=== PATIENT | female | born 1970 | race Caucasian/White ===

== ENCOUNTER → 2019-12-19 17:19 | Outpatient (CLI) | payer OTHER, SELFPAY ==
--- NOTE | ~2019-12-19 | MM_ITS ---
EXAMINATION: MM screening [facility] BI [facility] HISTORY: Screening mammogram TECHNIQUE: Craniocaudal and mediolateral oblique 3-D tomosynthesis images were obtained and synthetic 2-D images were generated. CAD analysis was submitted and interpreted. COMPARISON: 12/30/2017, 09/05/2016, 06/27/2015 BREAST PARENCHYMAL COMPOSITION: The breasts are heterogeneously dense, which may obscure small masses . FINDINGS: RIGHT BREAST: There is no evidence of suspicious mass, calcification, or architectural distortion to suggest malignancy. There has been no significant interval change. LEFT BREAST: There are grouped indeterminate calcifications in the posterior third of the outer breas t best appreciated 6 cm from the nipple. IMPRESSION: 1. Indeterminate left breast calcifications. 2. Magnification views are recommended. BI-RADS Category 0: Incomplete: Needs additional imaging evaluation. Reviewed, dictated and finalized at location A.
== END ==
PROVIDERS: Visit Provider Obstetrics & Gynecology
DX: Z12.31 Encounter for screening mammogram for malignant neoplasm of breast (principal); R92.8 Other abnormal and inconclusive findings on diagnostic imaging of breast
CPT/HCPCS: 77063; 77067

== ENCOUNTER → 2019-12-26 07:08 | Outpatient (CLI) | payer OTHER, SELFPAY ==
--- NOTE | ~2019-12-26 | XR_ITS ---
XR chest 2V DATE: 12/26/2019 07:30 INDICATION: Cough for 3 weeks TECHNIQUE: PA and lateral views COMPARISON: 02/11/2018 two-view chest FINDINGS: Normal heart size. No hilar or mediastinal enlargement. No pulmonary infiltrate or consolid ation, pleural effusion or pulmonary vascular congestion or pneumothorax. Included skeletal structures are unremarkable. IMPRESSION: No active cardiopulmonary disease Reviewed, dictated and finalized at location A.
== END ==
PROVIDERS: PCP Family Medicine; Visit Provider Nurse Practitioner Family
DX: R05 Cough (principal)
CPT/HCPCS: 71046

== ENCOUNTER → 2020-04-17 07:43 | Outpatient (CLI) | payer OTHER, SELFPAY ==
--- NOTE | ~2020-04-17 | MM_ITS ---
EXAMINATION: MM diagnostic mammo unilat LT HISTORY: Indeterminate left breast calcifications on screening mammogram TECHNIQUE: Additional images of the left breast were performed. CAD analysis was submitted and interp reted. COMPARISON: 12/29/2019, 12/30/2017, 09/05/2016 BREAST PARENCHYMAL COMPOSITION: The breasts are heterogeneously dense, which may obscure small masses . FINDINGS: There are grouped, punctate calcifications in the posterior third of the outer breast appro ximately 7 cm from the nipple which appear to be round in morphology. With magnification and conventi onal two soham mammography, these appear to be stable when compared to prior examinations although subt le against the background heterogeneously dense breast tissue. No suspicious mass or architectural di stortion is identified. IMPRESSION: 1. Probably benign left breast calcifications. 2. Recommend 6 month follow-up left diagnostic mammogram. BI-RADS category 3, probably benign findings. Reviewed, dictated and finalized at location A.
== END ==
PROVIDERS: PCP Family Medicine; Visit Provider Obstetrics & Gynecology
DX: R92.1 Mammographic calcification found on diagnostic imaging of breast (principal)
CPT/HCPCS: 77065

== ENCOUNTER 2020-07-24 08:55 | Outpatient (CLI) | payer OTHER, SELFPAY ==
--- NOTE | ~2020-07-24 | XR_ITS ---
EXAMINATION: XR chest 2V DATE: 07/24/2020 09:21 INDICATION: Acute upper respiratory infection, unspecified. TECHNIQUE: Frontal and lateral views of the chest were obtained. COMPARISON: Chest 2 views 12/26/2019 FINDINGS: The chest demonstrates clear lungs without pneumonia, pleural effusion, or pneumothorax. Th e heart size is normal. IMPRESSION: 1. No acute cardiopulmonary disease. Reviewed, dictated and finalized at location A.
[2020-07-24 09:26] LABS: Anion Gap 9 mmol/L (8-16); Blood Urea Nitrogen 13 mg/dL (7-17); Calcium 9.6 mg/dL (8.4-10.2); Carbon Dioxide 32 mmol/L (22-30); Chloride 99 mmol/L (98-107); Cholesterol 264 mg/dL (0-200); Estimated Glomerular Filt Rate > 60; Glucose 106 mg/dL (65-105); HDL Direct 32 mg/dL; Potassium 3.9 mmol/L (3.4-5.0); Sodium 140 mmol/L (137-145); Triglycerides 327 mg/dL (<150)
[2020-07-24 09:37] LABS: LDL Cholesterol Direct 181 mg/dL
== END 2020-07-24 08:56 | disposition home or self-care (01) ==
PROVIDERS: PCP Family Medicine; Referring Provider Nurse Practitioner Family; Visit Provider Family Medicine
DX: E78.2 Mixed hyperlipidemia (principal); I10 Essential (primary) hypertension; J06.9 Acute upper respiratory infection, unspecified; R05 Cough
CPT/HCPCS: 36415; 71046; 80048; 80061

== ENCOUNTER 2020-10-03 07:23 | Outpatient (CLI) | payer OTHER, SELFPAY ==
--- NOTE | ~2020-10-03 | MR_ITS ---
EXAMINATION: MR cervical spine wo con EXAM DATE: 10/03/2020 09:04 INDICATION: Neck pain. Arm pain. TECHNIQUE: Multi-sequential, multiplanar MR images of the cervical spine were obtained without contra st. Axial T2, axial T2 MERGE sequence. Sagittal T1, T2, T2 fat saturation images also obtained. Com parison is made to prior examination from 11/05/2018. FINDINGS: Straightening of cervical lordosis, could be positional. There is mild to moderate loss of the C5-6 disc height. The vertebral body and disc heights are otherwise well maintained. The vertebra l bodies are aligned in the AP dimension. The spinal cord signal intensity and intrinsic morphology i s normal. Cervicomedullary junction is normal in appearance. There are no suspicious marrow signal ab normalities. Paraspinal soft tissue is unremarkable. Level by level evaluation: C2-C3: Disc does not extend beyond the endplate margin. Uncovertebral joint arthropathy: None. Facet joint arthropathy: Minimal bilateral. Neural foraminal stenosis: No stenosis. Central canal stenosis: No stenosis. C3-C4: Disc does not extend beyond the endplate margin. Uncovertebral joint arthropathy: Mild right. Facet joint arthropathy: Minimal bilateral. Neural foraminal stenosis: Mild right. Central canal stenosis: No stenosis. C4-C5: There is a minimal diffuse disc bulge, asymmetric to the right Uncovertebral joint arthropathy: Mild to moderate right, mild left. Facet joint arthropathy: Mild bilateral. Neural foraminal stenosis: Mild right. Central canal stenosis: No stenosis. C5-6: There is a mild diffuse disc bulge, asymmetric to the right bulging into the neural foramina. Uncovertebral joint arthropathy: Moderate right, mild to moderate left. Facet joint arthropathy: Mild to moderate bilateral. Neural foraminal stenosis: Moderate to severe right, mild to moderate left. Central canal stenosis: Mild. C6-7: Disc does not extend beyond the endplate margin. Uncovertebral joint arthropathy: Mild. Facet joint arthropathy: Mild bilateral. Neural foraminal stenosis: No stenosis. Central canal stenosis: No stenosis. C7-T1: Disc does not extend beyond the endplate margin. Uncovertebral joint arthropathy: None. Facet joint arthropathy: Mild bilateral. Neural foraminal stenosis: No stenosis. Central canal stenosis: No stenosis. Compared to 2019, difficult appreciate any significant interval change. IMPRESSION: 1. C5-6 moderate to severe right neural foraminal stenosis. 2. Otherwise relatively mild spondylosis. Reviewed, dictated and finalized at location B. 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
== END 2020-10-03 07:24 | disposition home or self-care (01) ==
LOC: ANHIMG 07:27
PROVIDERS: PCP Family Medicine; Visit Provider Family Medicine
DX: M50.30 Other cervical disc degeneration, unspecified cervical region (principal); M47.892 Other spondylosis, cervical region
CPT/HCPCS: 72141

== ENCOUNTER 2021-03-06 14:30 | Outpatient (CLI) | payer OTHER, SELFPAY ==
--- NOTE | ~2021-03-06 | XR_ITS ---
XR chest 2V 03/06/2021 14:53 Indication: Acute bronchitis Procedure: 2 view chest Comparison: 07/24/2020 Findings: Heart size normal. No focal air space disease, pulmonary edema, pleural effusion or suspect ed pneumothorax. Impression: 1: No acute cardiopulmonary disease. Reviewed, dictated and finalized at location A. Impression: 1: No acute cardiopulmonary disease.
== END 2021-03-06 14:31 | disposition home or self-care (01) ==
LOC: ANHIMG 14:39
PROVIDERS: PCP Family Medicine; Visit Provider Physician Assistant Medical
DX: J20.9 Acute bronchitis, unspecified (principal)
CPT/HCPCS: 71046

== ENCOUNTER → 2022-05-13 16:08 | Outpatient (CLI) | payer BC, SELFPAY ==
--- NOTE | ~2022-05-13 | MM_ITS ---
EXAMINATION: MM screening [facility] HISTORY: Screening TECHNIQUE: Craniocaudal and mediolateral oblique 3-D tomosynthesis images were obtained and synthetic 2-D images were generated. CAD analysis was submitted and interpreted. COMPARISON: Comparison to multiple prior studies sequentially, with oldest reviewed study dated 03/2014. BREAST PARENCHYMAL COMPOSITION: The breasts are heterogenously dense, which may obscure small masses FINDINGS: There is a new cluster of punctate nonspecific calcifications in the upper outer quadrant o f the left breast posteriorly. The right breast is stable without evidence for malignancy. IMPRESSION: 1. Clustered indeterminate left breast calcifications. 2. Magnification views are recommended. BI-RADS Category 0: Incomplete: Needs additional imaging evaluation. Reviewed, dictated and finalized at location A.
== END ==
PROVIDERS: PCP Family Medicine; Visit Provider Nurse Practitioner Obstetrics & Gynecology
DX: Z12.31 Encounter for screening mammogram for malignant neoplasm of breast (principal); R92.8 Other abnormal and inconclusive findings on diagnostic imaging of breast
CPT/HCPCS: 77063; 77067

== ENCOUNTER → 2022-06-03 08:01 | Outpatient (CLI) | payer BC, SELFPAY ==
--- NOTE | ~2022-06-03 | MM_ITS ---
EXAMINATION: MM diagnostic mammo unilat LT HISTORY: Follow-up left breast calcifications TECHNIQUE: Additional 3-D tomosynthesis images of the left breast were performed and synthetic 2-D im ages were generated. CAD analysis was submitted and interpreted. COMPARISON: 05/13/2022 BREAST PARENCHYMAL COMPOSITION: The breasts are heterogeneously dense, which may obscure small masses FINDINGS: There is a cluster of indeterminate calcifications in the upper outer quadrant of the left breast posteriorly. There are no suspicious masses or architectural distortion. IMPRESSION: 1. Clustered indeterminate left breast calcifications, upper outer quadrant. 2. Stereotactic left breast biopsy recommended. BI-RADS category 4, suspicious findings. Reviewed, dictated and finalized at location A.
== END ==
PROVIDERS: PCP Family Medicine; Visit Provider Nurse Practitioner Obstetrics & Gynecology
DX: R92.8 Other abnormal and inconclusive findings on diagnostic imaging of breast (principal)
CPT/HCPCS: 77065

== ENCOUNTER 2022-06-11 10:34 | Outpatient (CLI) | payer BC, SELFPAY ==
--- NOTE | ~2022-06-11 | MR_ITS ---
EXAMINATION: MR shoulder LT wo con DATE: 06/11/2022 11:31 INDICATION: Left shoulder pain and decreased range of motion with inability to raise the left arm. TECHNIQUE: Magnetic resonance imaging (MRI) of the left shoulder was performed without intravenous co ntrast. Sequences included axial PD-weighted FS FSE, coronal oblique PD-weighted FS FSE, coronal obli que T2-weighted FS FSE, sagittal PD-weighted FS FSE, and sagittal T1-weighted SE. COMPARISON: None. FINDINGS: Coracoacromial arch: The acromion undersurface is curved in morphology (type II). The coracoacromial ligament is normal. M oderate osteoarthritis at the left acromioclavicular joint. Rotator cuff: Mild supraspinatus and infraspinatus tendinopathy. Small mild partial-thickness intrasubstance tear e xtending 7 mm AP on the superior facet footplate of the conjoined portion of the supraspinatus and in fraspinatus tendons which involves no greater than one third of the tendon thickness. The bursal and articular sides of the tendon remain intact. The teres minor and subscapularis tendons are normal. No rmal rotator cuff muscle bulk and signal. Biceps tendon, glenoid labrum and glenohumeral cartilage: Long head of the biceps tendon is normal. Linear fluid signal intensity superior, anterior to posteri or tear of glenoid labrum (SLAP tear) at the 11:00-12:00 position. Glenohumeral cartilage is normal. Fluid: Physiologic amount of fluid in the glenohumeral joint and biceps tendon sheath. No loose osteochondr al bodies. Small amount of fluid in the subacromial/subdeltoid bursa consistent with mild bursitis. Bones/other: Normal marrow signal with no fracture or abnormal marrow replacing process. Mild cystic changes along the greater tuberosity. Thickened intermediate signal soft tissue replacing the normal T1 hyperinten se fat signal at the rotator cuff interval which could be seen scarring partial tear scarring at the biceps sharon sling or adhesive capsulitis, latter which is a clinical diagnosis. IMPRESSION: 1. Mild supraspinatus and infraspinatus tendinopathy with small mild intrasubstance tear at the inser tion of the conjoined portion of the tendons. 2. Small SLAP tear at the 10:00 to 11:00 position of the posterior superior glenoid labrum. 3. Thickened soft tissue at the rotator cuff interval which could represent either scarring related t o chronic partial tear of the biceps sharon sling or adhesive capsulitis, the latter which is a clini maria antonia diagnosis. 4. Moderate acromioclavicular osteoarthritis. Reviewed, dictated and finalized at location A. IMPRESSION: 1. Mild supraspinatus and infraspinatus tendinopathy with small mild intrasubst ance tear at the insertion of the conjoined portion of the tendons. 2. Small SLAP tear at the 10:00 to 11:00 position of the posterior superior gle noid labrum. 3. Thickened soft tissue at the rotator cuff interval which could represent eit her scarring related to chronic partial tear of the biceps sharon sling or adhe sive capsulitis, the latter which is a clinical diagnosis. 4. Moderate acromioclavicular osteoarthritis.
== END 2022-06-11 10:35 | disposition home or self-care (01) ==
PROVIDERS: PCP Family Medicine; Visit Provider Family Medicine
DX: M19.012 Primary osteoarthritis, left shoulder (principal); S43.432A Superior glenoid labrum lesion of left shoulder, initial encounter; X58.XXXA Exposure to other specified factors, initial encounter
CPT/HCPCS: 73221

== ENCOUNTER → 2022-12-09 13:32 | Outpatient (CLI) | payer BC, SELFPAY ==
--- NOTE | ~2022-12-09 | XR_ITS ---
Clinical Indication: Chronic bronchitis PA and lateral views of the chest: Comparison: 03/06/2021 Findings: The lungs are clear, without evidence of focal consolidation or pleural effusion. Cardiome diastinal silhouette is within normal limits. Bones and soft tissues are unremarkable. Impression: Normal chest. Reviewed, dictated and finalized at [facility]. 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
== END ==
PROVIDERS: PCP Family Medicine; Visit Provider Physician Assistant Medical
DX: J42 Unspecified chronic bronchitis (principal)
CPT/HCPCS: 71046

== ENCOUNTER 2023-03-02 12:31 | Emergency (ER) | payer BC, SELFPAY ==
--- NOTE | ~2023-03-02 | CT_ITS ---
EXAMINATION: CT abdomen pelvis w con DATE: 03/02/2023 18:30 INDICATION: epigastric, generalized TECHNIQUE: Computed tomography (CT) of the abdomen and pelvis was performed with 100 mL Omnipaque-350 intravenous contrast. Automated exposure control and iterative reconstruction technique were employe d. The dose-length product was 464.39 mGy-cm. COMPARISON: 03/19/2006. FINDINGS: Lower thorax: Small hiatal hernia. 6 mm lymph node at the esophageal hiatus. Mild coronary artery maria antonia cification. Mild dependent atelectasis. Liver: Normal. Biliary/Gallbladder: Gallbladder is normal. No bile duct dilation. Pancreas: No mass or duct dilation. Spleen: Granulomatous calcifications. Adrenals: 1.8 cm indeterminate density right adrenal lesion, not well seen in the prior study. Kidneys: Tiny subcentimeter left renal hypodensity, too small to characterize but most likely represe nts a cyst. No suspicious mass, stone, or hydronephrosis. GI tract: Mild distal esophageal and gastric wall edema. 4.8 cm uncomplicated appearing gastric diver ticulum No small or large bowel dilation. Normal appendix. Diverticulosis without diverticulitis. Mesentery/Peritoneum: No ascites, mass, or free air. Retroperitoneum: No mass. Pelvis: Urinary bladder is decompressed. IUD, in good position. Soft Tissues: Soft tissues and body wall unremarkable. Bones: No acute osseous finding. IMPRESSION: 1. Mild esophagitis/gastritis. 2. 4.8 cm gastric diverticulum without ulceration or inflammatory change, normally an asymptomatic fi nding that occasionally may present with epigastric discomfort. 3. 1.8 cm indeterminate right adrenal mass, if there is no history of cancer this is probably a benig n finding, consider 12 month follow-up adrenal CT. Reviewed, dictated and finalized at location K. IMPRESSION: 1. Mild esophagitis/gastritis. 2. 4.8 cm gastric diverticulum without ulceration or inflammatory change, teri lly an asymptomatic finding that occasionally may present with epigastric disco mfort. 3. 1.8 cm indeterminate right adrenal mass, if there is no history of cancer th is is probably a benign finding, consider 12 month follow-up adrenal CT.
[2023-03-02 12:33] VITALS: BP 119/80; PULSE 101; RESP 18; TEMP 37.3; O2SAT 100
[2023-03-02 13:39] LABS: Basophils Absolute Auto 0.1 K/mm3 (0.0-0.1); Basophils Percent Auto 0.9 % (0.2-1.2); Eosinophils Percent Auto 0.5 % (0-4.4); Hematocrit 41.6 % (37.0-47.0); Hemoglobin 13.5 g/dL (12.0-15.0); Immature Granulocyte Absolute 0.02 K/mm3 (0.00-0.031); Immature Granulocyte Percent A 0.4 % (0-0.5); Lymphocytes Absolute Auto 2.37 K/mm3 (0.9-3.2); Lymphocytes Percent Auto 43.1 % (18.3-44.2); Mean Corpuscular HGB Conc 32.5 g/dl (32-36); Mean Corpuscular Hemoglobin 28.2 pg (26-34); Mean Platelet Volume 10.7 fl (7.4-10.4); Monocytes Absolute Auto 0.4 K/mm3 (0.1-0.6); Monocytes Percent Auto 7.6 % (2.6-8.5); Neutrophils Absolute Auto 2.6 K/mm3 (1.3-6.7); Neutrophils Percent Auto 47.5 % (45.5-73.1); Platelet Count Result 220 k/mm3 (150-375); Red Blood Count 4.78 M/mm3 (4.2-5.4); Red Cell Distribution Width 14.7 % (11.5-14.5); White Blood Count 5.5 K/mm3 (4.5-10.0)
[2023-03-02 13:49] LABS: Atypical Lymphocytes Present; Platelet Estimate Adequate (Adequate); Schistocytes None Seen (NORMAL)
[2023-03-02 13:52] LABS: Appearance Urine Cloudy (Clear); Bacteria Urine 2+ /hpf; Bilirubin Urine Negative (Negative); Blood Urine Trace (Negative); Color Urine Yellow (Yellow); Glucose Urine UA Negative (Negative); Ketones Urine Negative (Negative); Leukocyte Esterase Ur 3+ LEU/UL (Negative); Need Manual Microscopic Reviewed; Nitrate Urine Negative (Negative); Non Pathogenic Casts 0-2; Protein Urine Negative (Negative); RBC Urine 0-2 /hpf (0-2); Squamous Epithelial Cell Urine Many /hpf (Few); Urobilinogen Urine 0.2 mg/dL (<2.0)
[2023-03-02 13:54] LABS: Add Urine Microscopic? YES
[2023-03-02 14:13] LABS: Alanine Aminotransferase 109 U/L (6-35); Albumin Level 4.9 g/dL (3.5-5.1); Alkaline Phosphatase 155 U/L (38-126); Anion Gap 9 mmol/L (8-16); Aspartate Amino Transferase 81 U/L (14-36); Blood Urea Nitrogen 15 mg/dL (7-17); Carbon Dioxide 28 mmol/L (22-30); Chloride 99 mmol/L (98-107); Estimated CRCL calculation 69 ml/min; Estimated Glomerular Filt Rate > 60; Glucose 88 mg/dL (65-110); Lipase 80 U/L (23-300); Potassium 4.1 mmol/L (3.4-5.0); Sodium 136 mmol/L (137-145)
[2023-03-02 15:49] VITALS: BP 116/65; PULSE 103; RESP 18; O2SAT 99
[2023-03-02] MEDS: SODIUM CHLORIDE 0.9% IV 1,000 ML 999 ML IV CONT (18:33)
[2023-03-02] MEDS: MORPHINE SULFATE (*CRX) 4 MG/ML INJ IV PUSH (18:34)
--- NOTE | 2023-03-02 18:52 | ED.ABDPAIN ---
HPI - Abdominal Pain General Chief Complaint: Abdominal Pain Stated Complaint: abd pain, N/V since January Time Seen by Provider: 03/02/23 17:53 Source: patient Mode of arrival: ambulatory Limitations: no limitations History of Present Illness HPI narrative: This is a 52-year-old female with PMH of gastritis who presents to the ED with chief complaint of generalized abdominal pain. States that she was seen in ER February 04 and was told she had a an infection. She was prescribed antibiotics by her primary care and finished those. She states her symptoms seem to improve after that but in the last couple days she is having more pain. She has not had any more episodes of vomiting. Denies nausea. She has Zofran prescription at home. She has prescriptions for omeprazole and Mylanta at home as well which seem to help. She states that her pain is no different but she is just tired of dealing with it. Denies fevers, chills, chest pain, shortness of breath, problems with BMs, and urinary symptoms. Related Data Home Medications Medication Instructions Recorded Confirmed meloxicam 15 mg tablet 15 mg PO DAILY 08/18/22 02/13/23 metoclopramide HCl 10 mg tablet 10 mg PO DAILY 02/13/23 02/13/23 Allergies Allergy/AdvReac Type Severity Reaction Status Date / Time moxifloxacin [From Avelox] Allergy Intermediate Rash Verified 03/02/23 17:56 Review of Systems Review of Systems: CONSTITUTIONAL: Denies fever, chills, or sweats. EYES: Denies visual changes, redness, or discharge. ENT: Denies rhinorrhea, congestion, sore throat, or otalgia. CARDIOVASCULAR: Denies chest pain, palpitations, or edema. RESPIRATORY: Denies cough or dyspnea. GASTROINTESTINAL: See HPI GENITOURINARY: Denies dysuria or hematuria. SKIN: Denies rash or itching. MUSCULOSKELETAL: Denies back pain, joint pain, or myalgia. NEUROLOGIC: Denies headache, numbness, dizziness, or weakness. PSYCHIATRIC: Denies anxiety or depression. [facility] Past Medical History Medical History (Updated 03/02/23 @ 18:54 by Michael Sidhu PA-C) Abnormal weight gain BMI 29.0-29.9,adult BMI 30.0-30.9,adult BMI 31.0-31.9,adult COVID Degenerative, intervertebral disc, cervical Hormone imbalance Mesenteric adenitis Otalgia of both ears Right shoulder injury Family History Family History Mother Hypertension Family history of diabetes mellitus in first degree relative Father Diverticula of colon Social History Social History Smoking status: Former smoker Tobacco type: cigarettes Second hand tobacco smoke exposure: No Alcohol intake: current Drinks per week: 2 Substance use: current Substance use type: marijuana Other substance usage details: 2x month Living arrangements: with family Additional living arrangements comments: Occupation/Education: unemployed Gender identity (if verbalized by the patient): Female Sexual Orientation (if Verbalized by the Patient): Straight or Heterosexual Spiritual care concerns: No Agree to blood products: Yes Exam Narrative: GENERAL: Well-appearing, well-nourished, and in no acute distress. Resting comfortably. HEAD: Normocephalic, atraumatic. EYES: PERRLA and EOMI. ENT: Nares clear, no rhinorrhea or epistaxis. Mucous membranes moist. Oropharynx without tonsillar hypertrophy exudate or other lesions. NECK: Supple. No adenopathy or masses. CHEST: No respiratory distress. Clear to auscultation. No wheezes rales or rhonchi HEART: Regular rate and rhythm. No murmur heard. Normal peripheral pulses. ABDOMEN: Mild epigastric tenderness. Soft, otherwise nontender, nondistended, normal active bowel sounds. MSK: Normal range of motion. No edema. SKIN: Warm, dry, no rash. NEURO: Alert and oriented x3. No focal deficits. PSYCH: Normal mood and affect. Course Course Emergency [facility]
[2023-03-02 19:07] VITALS: BP 98/85; PULSE 87; RESP 18; O2SAT 98
[2023-03-02 19:16] VITALS: BP 110/70; PULSE 86; RESP 18; O2SAT 98
== END 2023-03-02 19:40 | disposition home or self-care (01) ==
PROVIDERS: Emergency Medicine; Emergency Provider Physician Assistant; PCP Family Medicine
DX: K29.70 Gastritis, unspecified, without bleeding (principal)
CPT/HCPCS: 36415; 74177; 80053; 81001; 81025; 83690; 85025; 87086; 87088; 96365; 96375; 99284; J0696; J2270; J7030; Q9967

== ENCOUNTER 2023-03-12 02:21 | Day surgery (SDC) | payer BC, SELFPAY ==
[2023-03-04 11:58] VITALS: BMI 30.2
--- NOTE | 2023-03-11 20:16 | PM.HPGS ---
History of Present Illness History of Present Illness Consent: Risks, benefits, and alternatives have been discussed and questions answered. Patient agrees to proceed with procedure. Chief complaint: change in bowel habits, N&V Narrative: Malu Lane is a 52 year old female has not felt well since January.? She recalls that on January 20 she went to [facility] with her daughter an 11 month old.? They fed the stingrays and the [id number] put some of the stingray food into his mouth.? Within a day or to he was severely sick with ?stomach virus? he was hospitalized.? His mother also then came down with severe diarrhea.? The patient was still okay but on February 04 she woke up feeling sick to her stomach, ill and weak.? She vomited all day every hour to an was bringing up dark, coffee-ground black material initially.? The next day she was not vomiting but was having pain and cramping her abdomen this pain in fact has been constant ever since then.? On the 06 of February, the 3rd day of her illness she went to work but by 3:00 p.m. could take it no more went to an emergency room in [place].? There she had laboratory studies that was [place] for [place] [id number].? A CT scan of the abdomen was done and has been scanned to the chart.? What was noted was that compared to previous scan she had lymphadenopathy that was ?unchanged in size and number? it was described as enlarged jejunal chain of lymph nodes.? They also had noted diffuse gastric distention with a large air-fluid level.? She was sent home on metoclopramide to take as needed Review of Systems Review of Systems: All systems reviewed & are unremarkable except as noted in HPI and below PMFSH Past Medical History Medical History Abnormal weight gain BMI 29.0-29.9,adult BMI 30.0-30.9,adult BMI 31.0-31.9,adult COVID Degenerative, intervertebral disc, cervical Hormone imbalance Mesenteric adenitis Otalgia of both ears Right shoulder injury Family History Family History Mother Hypertension Family history of diabetes mellitus in first degree relative Father Diverticula of colon Social History Social History Smoking status: Never smoker Tobacco type: cigarettes Second hand tobacco smoke exposure: No Alcohol intake: current Drinks per week: 2 Alcohol use details: 5 drinks monthly Substance use: current Substance use type: does not use Other substance usage details: 2x month Living arrangements: with family Additional living arrangements comments: Occupation/Education: unemployed Gender identity (if verbalized by the patient): Female Sexual Orientation (if Verbalized by the Patient): Straight or Heterosexual Spiritual care concerns: No Agree to blood products: Yes Meds Home Medications and Allergies Home Medications Medication Instructions Recorded Confirmed Type rabeprazole 20 mg tablet,delayed 20 mg PO DAILY #90 tabs 05/27/22 03/12/23 Rx release (AcipHex) meloxicam 15 mg tablet 15 mg PO DAILY 08/18/22 03/12/23 History hydrochlorothiazide 25 mg tablet 25 mg PO DAILY #90 tabs 01/16/23 03/12/23 Rx losartan 100 mg tablet 100 mg PO DAILY #90 tabs 01/16/23 03/12/23 Rx rosuvastatin 20 mg tablet (Crestor) 20 mg PO DAILY #90 tabs 01/16/23 03/12/23 Rx Allergies Allergy/AdvReac Type Severity Reaction Status Date / Time moxifloxacin [From Avelox] Allergy Intermediate Rash Verified 03/12/23 12:33 Exam Const: General: alert Orientation/consciousness: patient oriented x3 Resp: Auscultation: clear to auscultation bilaterally Cardio: Rhythm: regular rhythm GI: GI Palp: Yes Soft to palpation and No Tenderness to palpation present (GI) Neuro: General: patient oriented x3 Assessment and Plan Assessment and plan (1) Nausea a
[2023-03-12 12:34] VITALS: BP 126/76; PULSE 96; RESP 16; TEMP 36.4; O2SAT 96; BMI 28.5
[2023-03-12] MEDS: LACTATED RINGERS 1,000 ML 150 ML IV CONT (12:43)
--- NOTE | 2023-03-12 13:00 | WPDANESEPPF ---
Anes - Initial Pre Proc Eval Procedure: Operation Date: 03/12/23 14:15 Proposed Procedures p Esophagogastroduodenoscopy & Colonoscopy - Oliverio Ann MD Date/Time: 03/12/23 13:00 Surgeon: Oliverio Ann MD Pre Op Diagnosis: change in bowel habits, N&V Patient Data Age: 52 Gender: F Height: 1.6 m Weight: 73.1 kg Last Vital Signs Temp 97.5 F L 03/12/23 12:34 Pulse 96 03/12/23 12:34 Resp 16 03/12/23 12:34 BP 126/76 03/12/23 12:34 Pulse Ox 96 03/12/23 12:34 O2 Del Method Room Air 03/12/23 12:34 Allergies Allergy/AdvReac Type Severity Reaction Status Date / Time moxifloxacin [From Avelox] Allergy Intermediate Rash Verified 03/12/23 12:33 Home Medications Medication Instructions Recorded Confirmed Type rabeprazole 20 mg tablet,delayed 20 mg PO DAILY #90 tabs 05/27/22 03/12/23 Rx release (AcipHex) meloxicam 15 mg tablet 15 mg PO DAILY 08/18/22 03/12/23 History hydrochlorothiazide 25 mg tablet 25 mg PO DAILY #90 tabs 01/16/23 03/12/23 Rx losartan 100 mg tablet 100 mg PO DAILY #90 tabs 01/16/23 03/12/23 Rx rosuvastatin 20 mg tablet (Crestor) 20 mg PO DAILY #90 tabs 01/16/23 03/12/23 Rx Patient hx anesthesia problems: none Family hx anesthesia problems: none Results Review: All pre-operative results and documents have been reviewed as part of the pre-operative evaluation. [facility] Past Medical History Medical History Abnormal weight gain BMI 29.0-29.9,adult BMI 30.0-30.9,adult BMI 31.0-31.9,adult COVID Degenerative, intervertebral disc, cervical Hormone imbalance Mesenteric adenitis Otalgia of both ears Right shoulder injury Family History Family History Mother Hypertension Family history of diabetes mellitus in first degree relative Father Diverticula of colon Social History Social History Smoking status: Never smoker Tobacco type: cigarettes Second hand tobacco smoke exposure: No Alcohol intake: current Drinks per week: 2 Alcohol use details: 5 drinks monthly Substance use: current Substance use type: does not use Other substance usage details: 2x month Living arrangements: with family Additional living arrangements comments: Occupation/Education: unemployed Gender identity (if verbalized by the patient): Female Sexual Orientation (if Verbalized by the Patient): Straight or Heterosexual Spiritual care concerns: No Agree to blood products: Yes Anes - Eval Final PreProcedure Day of Procedure 03/12/23 13:00 Patient weight: normal Heart: regular rate and rhythm Lungs: clear to auscultation Airway: Mallampati scale class II Neurological: alert and oriented Last oral intake: >/= 8 hours ASA classification: III Emergent: no Anesthetic plan: proceed Anesthesia type and monitoring: general GIVS and standard monitoring Results Review: All pre-operative results and documents have been reviewed as part of the pre-operative evaluation. Informed Consent: The patient's anesthetic plan and its attendant risks and benefits were discussed with the patient/family/POA. Questions were solicited and answers provided to the satisfaction of the patient/family/POA.
[2023-03-12 14:01] VITALS: BP 100/64; PULSE 92; RESP 20; O2SAT 97
--- NOTE | 2023-03-12 14:01 | SUR.OPER ---
EGD START: 1343; END: 1346. COLONOSCOPY START: 1352; END: 1400.
[2023-03-12 14:11] VITALS: BP 110/73; PULSE 84; RESP 15; O2SAT 98
[2023-03-12 14:21] VITALS: BP 117/77; PULSE 82; RESP 22; O2SAT 99
== END 2023-03-12 14:38 | disposition home or self-care (01) ==
PROVIDERS: PCP Family Medicine; Visit Provider Internal Medicine Gastroenterology
PROC: 0DJ08ZZ Inspection of Upper Intestinal Tract, Via Natural or Artificial Opening Endoscopic (ICD-10-PCS; CPT 43235; principal; 2023-03-12 14:15)
DX: R19.4 Change in bowel habit (principal); K57.30 Diverticulosis of large intestine without perforation or abscess without bleeding; K64.8 Other hemorrhoids; K25.9 Gastric ulcer, unspecified as acute or chronic, without hemorrhage or perforation; K29.70 Gastritis, unspecified, without bleeding
CPT/HCPCS: 45378; 43239; 87081; 88305; J2704; J7120

== ENCOUNTER 2023-04-15 09:03 | Outpatient (CLI) | payer BC, MEDICAID, SELFPAY ==
--- NOTE | ~2023-04-15 | US_ITS ---
Abdominal Sonogram: Real-time sonographic imaging of the abdomen was performed. Clinical History: Abnormal LFTs Findings: The liver appears minimally echogenic with no evidence of mass lesion or bile duct dilatat ion. Main portal vein demonstrates normal direction of flow. The spleen is normal in size without imlton dence of focal lesion. The gallbladder is well distended, and appears normal with no evidence of gal lstone or wall thickening. The common bile duct measures 4 mm. The visualized pancreas, aorta, and I VC are unremarkable. The right kidney measures 11.6 cm in length and the left kidney measures 10.7 c m. There is no hydronephrosis or renal calculus. Impression: Possible mild diffuse fatty infiltration of liver. Reviewed, dictated and finalized at location M. Impression: Possible mild diffuse fatty infiltration of liver.
== END 2023-04-15 09:04 | disposition home or self-care (01) ==
PROVIDERS: PCP Family Medicine; Visit Provider Internal Medicine Gastroenterology
DX: R79.89 Other specified abnormal findings of blood chemistry (principal)
CPT/HCPCS: 76700

== ENCOUNTER 2023-05-04 07:45 | Outpatient (RCR) | payer BC, MEDICAID, SELFPAY ==
--- NOTE | 2023-05-04 09:36 | OPREHPOC ---
Outpatient Therapy Plan of Care This is a Multidisciplinary Plan of Care that may contain components documented by all disciplines (PT, OT, and ST.) PT Problem 1 PT Problem #1 Knowledge Deficit PT Goal 1 Goal Independent with HEP Target Visit 8 PT Problem 2 PT Problem #2 Impaired Vestibular Syste PT Goal 1 Goal no further flare ups of vertigo Target Visit 8 PT Problem 3 PT Problem #3 Pain PT Goal 1 Goal decrease headache pain to no more than 5/10 Target Visit 8 PT Problem 4 PT Problem #4 Impaired Range of Motion PT Goal 1 Goal increased lateral flexion HALIMA to 40 degrees.
--- NOTE | 2023-05-04 09:36 | PTOPEVAL1 ---
Assessment and note entered by Julian Kovacs, PT Evaluation Information Assessment Status Evaluation Diagnosis Vertigo Onset March 2023 Subjective Information Patient reports having a week long case of vertigo in March 2023 around the same time she had increased tinnitus in her L ear. (Has self reported tinnitus for about 2 years in both ears. After a week the symptoms went away until the week of April 20 it came again. MD originally ordered Meclizine after the first bout and ordered vestibular rehab after the second bout. Patient reports she her aggravating symptoms are looking up or neck extension as she cannot bend over and look up and has to squat down and keep her head straight when picking something up. 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 Currently reports no symptoms, but worried about another episode. Has a headache currently and gets them with a high frequency. Reported Pain Level Pain Score 8: Self Report Assessment PT Clinical Summary Malu is a 74 year old female coming into the clinic with a diagnosis of vertigo. She has negative VOR and [place] to go with good ocular motor motion besides slight undershoots with saccades. Balance appears well. Of concern is patient's reported headaches and bad neck along with increased tinnitus when vertigo started. Physical therapy will continue to work on the neck and check for more vertigo symptoms as she comes to therapy. Recommend ENT referral also. Plan of Care Interventions Electrical Stimulation,Gait Training,Hot Pack/Cold Pack,Manual Therapy,Mechanical Traction,Neuro Re- education,Patient/Caregiver Education,Therapeutic Activities,Therapeutic Exercise,Ultrasound Other Interventions taping, cupping, IASTM PT Services Indicated Yes Treatment Frequency and 1-2x/week for 8 visits Duration These treatments will address the objective and functional deficits as defined above. The patient will be advanced safely and appropriately in order for the patient to progress towards his/her prior level of function. Additional exercises will be introduced and as well as a comprehensive home exercise program upon discharge, if needed, ?to ensure carryover of functional gains achieved in the clinic. This treatment plan has been reviewed and agreement upon by the patient.
--- NOTE | 2023-05-06 14:29 | PCPTNOTE ---
Patient did not present for appointment today. 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 Was informed in the future, should she have a change in her schedule she is responsible for calling to cancel or reschedule otherwise will have a 25 dollar cancellation fee.
--- NOTE | 2023-05-12 12:17 | PCPTNOTE ---
Patient called & cancelled scheduled appointment 05/13/2023 date stating she is returning to her doctor.
--- NOTE | 2023-05-12 12:21 | PTOPPROGNS ---
Assessment and note entered by Cata Kovacs, PT Assessment Status Progress Report- Pt Not Present Diagnosis Vertigo Onset March 2023 Assessment PT Clinical Summary Pt attended evaluation on 05/04/23 and has since cancelled her two remaining appointments states she is returning to her doctor. She has not had the opportunity to initiate her physical therapy thus has not met her goals. When she is able to attend therapy, we would be happy to reinitiate her plan of care. Plan of Care Interventions Electrical Stimulation,Gait Training,Hot Pack/Cold Pack,Manual Therapy,Mechanical Traction,Neuro Re- education,Patient/Caregiver Educati,Therapeutic Activities,Therapeutic Exercise,Ultrasound Other Interventions taping, cupping, IASTM PT Services Indicated Yes Treatment Frequency and 1-2x/week for 8 visits Duration These treatments will address the objective and functional deficits as defined above. The patient will be advanced safely and appropriately in order for the patient to progress towards his/her prior level of function. Additional exercises will be introduced and as well as a comprehensive home exercise program upon discharge, if needed, ?to ensure carryover of functional gains achieved in the clinic. This treatment plan has been reviewed and agreement upon by the patient.
--- NOTE | 2023-07-06 11:58 | PCPTNOTE ---
Admitting Provider: Attending Provider: Sedrick Askew MD Patient:Malu Lane Date of :1970 Patient has not returned for any further treatments since 05/04/2023, therefore (he/she) will be discharged at this time. Patient?s initial visit was on 05/04/2023 08:00 and she had a total of 1 visit. She reported she wanted to see her doctor before continuing therapy. This was over a month ago and patient has not returned. The goals have been not met. Thank you for referring this patient to [facility]. Please review, sign, date and return this discharge summary MARGRET. I have been updated about the patient's current status and I agree with discharge from the above service at this time. Referring Physician Date
== END 2023-07-06 13:25 | disposition home or self-care (01) ==
LOC: ANHPT 07:45
PROVIDERS: PCP Family Medicine; Visit Provider Family Medicine
DX: H81.10 Benign paroxysmal vertigo, unspecified ear (principal)
CPT/HCPCS: 97110; 97161

== ENCOUNTER → 2023-06-04 09:38 | Outpatient (CLI) | payer BC, SELFPAY ==
--- NOTE | ~2023-06-04 | XR_ITS ---
EXAMINATION: XR knee RT min 4V DATE: 06/04/2023 10:22 INDICATION: Right knee pain TECHNIQUE: Four views of the right knee were obtained. COMPARISON: None. FINDINGS: Alignment is normal. No fracture or osteochondral lesion. There is mild tricompartmental os teoarthritis characterized by tiny marginal osteophytes. There is a small knee joint effusion. Soft t issues are unremarkable. IMPRESSION: 1. Small knee joint effusion and mild osteoarthritis without acute osseous abnormality. Reviewed, dictated and finalized at location A. IMPRESSION: 1. Small knee joint effusion and mild osteoarthritis without acute osseous abno rmality.
--- NOTE | ~2023-06-04 | XR_ITS ---
EXAMINATION: [id number] INDICATION: Right foot pain TECHNIQUE: Four views of the right foot are obtained. COMPARISON: None available FINDINGS: Bone alignment is normal. There is no fracture. There is mild osteoarthritis of the first m etatarsophalangeal joint and multiple interphalangeal joints. There is a plantar calcaneal enthesophy te. IMPRESSION: 1. No acute osseous abnormality. Reviewed, dictated and finalized at location A.
== END ==
PROVIDERS: PCP Family Medicine; Visit Provider Family Medicine
DX: M25.471 Effusion, right ankle (principal); M19.071 Primary osteoarthritis, right ankle and foot
CPT/HCPCS: 73564; 73630

== ENCOUNTER 2023-08-28 09:38 | Outpatient (CLI) | payer BC, SELFPAY ==
--- NOTE | ~2023-08-28 | MR_ITS ---
MRI of the brain Clinical History: Amnesia Technique: Axial and sagittal T1-weighted images were acquired. These were followed by axial T2-weigh mario, diffusion weighted, gradient, and FLAIR images. COMPARISON: 10/07/2016 Findings: No abnormal signal seen in the brain parenchyma. No acute infarct, intracranial hemorrhage, or mass lesion. Ventricles and subarachnoid spaces are unremarkable. Orbits are unremarkable. Paranasal sinuses and m astoid air cells are clear. Major intracranial flow voids are intact. Sagittal midline structures are intact. IMPRESSION: Unremarkable exam. Reviewed, dictated and finalized at location M. CTOR CLINICAL DATA IMPRESSION: Unremarkable exam.
== END 2023-08-28 09:39 | disposition home or self-care (01) ==
PROVIDERS: PCP Family Medicine; Visit Provider Family Medicine
DX: R41.3 Other amnesia (principal); R51.9 Headache, unspecified; R42 Dizziness and giddiness
CPT/HCPCS: 70551

== ENCOUNTER 2024-07-06 15:25 | Outpatient (CLI) | payer SELFPAY ==
--- NOTE | ~2024-07-06 | XR_ITS ---
EXAMINATION: XR chest 2V Exam Date/Time: 07/06/2024 15:51 CDT HISTORY: R05.9 - Cough, unspecified Comparison: 12/09/2022. RESULT: Lines, tubes, and devices: None. Lungs and pleura: Clear. Cardiomediastinal silhouette: Stable. Other: No acute osseous or upper abdominal finding. IMPRESSION: No acute cardiopulmonary process. Reviewed, dictated and finalized at location K.
== END 2024-07-06 15:26 | disposition home or self-care (01) ==
PROVIDERS: PCP Family Medicine; Visit Provider Nurse Practitioner Family
DX: R05.9 Cough, unspecified (principal)
CPT/HCPCS: 71046

== ENCOUNTER 2025-03-14 08:00 | Outpatient (CLI) | payer MEDICAID, SELFPAY ==
--- NOTE | ~2025-03-14 | XR_ITS ---
Clinical Indication: Cough PA and lateral views of the chest: Comparison: 07/06/2024 Findings: The lungs are clear, without evidence of focal consolidation or pleural effusion. Cardiome diastinal silhouette is within normal limits. Bones and soft tissues are unremarkable. Impression: Normal chest. Reviewed, dictated and finalized at location . Impression: Normal chest.
== END 2025-03-14 08:01 | disposition home or self-care (01) ==
LOC: MICIMG 08:02
PROVIDERS: PCP Family Medicine; Visit Provider Nurse Practitioner Family
DX: R05.2 Subacute cough (principal)
CPT/HCPCS: 71046